=== PATIENT | female | born 1935 | race Caucasian/White ===

== ENCOUNTER 2020-08-27 17:40 | Emergency (ER) | payer OTHER ==
[~2020-08-27] VITALS: Ht 170.2 cm; Wt 63.5 kg
--- NOTE | ~2020-08-27 | EMS ---
[address] [address] EMS Patient Care Report Name: ADRIANA LOPEZ I Room #: REG MADHU Maldonado#: [id number] Admission: 08/27/20 Attend Phys: Discharge: Date of : 34 Report #: [id number] THIS REPORT FOR: //name// Report Transmitted: 08/27/2020 19:24 EMS Care Summary [facility] MED-ACT Incident [id number] @ 08/27/2020 16:57 Incident Location [address] [place] [address] Patient ADRIANA LOPEZ Female, 85 Years 1935 Patient Address [address] [place] [address] Patient History Dementia, Patient Allergies No known allergies, Patient Medications Acetaminophen, Levothyroxine, Ascorbic Acid, Meclizine, Lexapro, Lorazepam, Aricept, Depakote, Lisinopril, Chief Complaint "she fell and went unresponsive" Disposition Transported No Lights/[place] Dispatch Reason Unconscious/Fainting Transported To [facility] Narrative [id number] dispatched to the above location for C1 Falls. Upon arrival to the scene, [address] [address] EMS Patient Care Report Name: ADRIANA LOPEZ I Room #: FABRICIO Maldonado#: [id number] Admission: 08/27/20 Attend Phys: Discharge: Date of : 34 Report #: [id number] pt can be found laying in right recumbent position. Pt appears to be alert but is not tracking EMS crew upon arrival. The pt appears to be in pain but in no sort of imminent distress. Pt's skin is pink, warm, and dry. No audible breath sounds, JVD, accessory muscle use noted. No fever, cough, or shortness of breath noted. Small laceration noted to the pt's head, on the right side. Bleeding is controlled. No deformities, contusions, crepitus or swelling noted anywhere else. Upon arrival to the scene, pt's nurse stated that she "found the patient on the ground" after she heard the pt scream. Pt's nurse stated that no one witnessed the fall but that the pt "was alert" for about "2 minutes after the fall" but then the pt "went unresponsive" for about "5-7 minutes". The pt stated that her head hurts and that her right knee was painful. The pt stated that she does not remember falling and repeatedly asks "what happened?". The pt stated that she is not in any other pain and denies shortness of breath, chest pain, and dizziness. Upon arrival to the scene, pt contact is made. Primary and secondary assessment was performed. Vital signs were acquired. Pt was lifted to the cot with help from the fire crew. Pt was loaded into the ambulance. Transport was started to [facility]. Biocom was given with no questions or orders. Upon arrival to the hospital, pt was moved to the bed in ED Room 1. Report was given and care was transferred to ED RN. Initial Vitals @17:08P: 64,R: 16,Pain: 8/10,GCS: 14,SpO2: 95, @17:19P: 59,R: 16,BP: 146/76,Pain: 8/10,GCS: 14,SpO2: 95,Revised Trauma: 12, @17:07P: 65,R: 16,BP: 135/70,Pain: 8/10,GCS: 14,SpO2: 95,Revised Trauma: 12, Assessments @17:30MENTAL:Confused,SKIN:HEENT:Head/Face: Other,Eyes: Right Pupil: 4-mm,Eyes: Left Pupil: 4-mm,Neck/Airway: No Abnormalities,LUNG SOUNDS:General: No Abnormalities,ABDOMEN:General: No Abnormalities,PELVIS//GI:No Abnormalities,EXTREMITIES:Right Leg: Other,Left Arm: No Abnormalities,Right Arm: No Abnormalities,Left Leg: No Abnormalities,PULSE:NEURO:No Abnormalities, Impression COVID-19 - Confirmed by testing Timeline 16:55,Call Received 16:55,Psap Call 16:57,Dispatched 16:57,En Route 17:02,On Scene [address] [address] EMS Patient Care Report Name: ADRIANA LOPEZ I Room #: REG MADHU Maldonado#: [id number] Admission: 08/27/20 Attend Phys: Discharge: Date of : 34 Report #: [id number] 17:06,At Patient 17:07,BP: 135/70 M,PULSE: 65,RR: 16 R,SPO2: 95 Ox,ETCO2: ,BG: ,PAIN: 8,GCS: 14, 17:08,BP: / M,PULSE: 64,RR: 16 R,SPO2: 95 Ox,ETCO2: ,BG: ,PAIN: 8,GCS: 14, 17:19,BP: 146/76 M,PULSE: 59,RR: 16 R,SPO2: 95 Ox,ETCO2: ,BG: ,PAIN: 8,GCS: 14, 17:25,Depart Scene 17:35,At Destination 17:55,Call Closed Disclaimer v1.1 Copyright 2020 [employer] This EMS Care Summary contains data elements from the applicable legal record (which may be displayed differently). It is designed to provide pertinent information for the following purposes: continuity of care, clinical quality, and state data reporting. The complete legal record is available to ED staff and administrators of the receiving hospital in [facility]'s Patient Tracker. All data is provided "as is."
[2020-08-27 18:22] LABS: HEMATOCRIT 33.4 % (37.0-47.0); HEMOGLOBIN 10.7 gm/dL (12.0-15.0); MCH 26.3 pg (26.0-34.0); MCHC 31.9 g/dL (28.0-37.0); MCV 82.4 fL (80.0-100.0); PLATELET COUNT 222 thou/uL (150-400); RBC 4.06 mil/uL (4.20-5.00); RDW 15.9 % (10.5-14.5); WBC 5.5 thou/uL (4.0-11.0)
[2020-08-27 18:40] LABS: ALBUMIN 3.3 g/dL (3.4-5.0); ANION GAP 5 mmol/L (7-16); BUN 22 mg/dL (7-18); CHLORIDE 104 mmol/L (98-107); CO2 32 mmol/L (21-32); CREATININE 1.2 mg/dL (0.6-1.0); GLUCOSE 95 mg/dL (74-106); SGOT 14 U/L (15-37); SGPT 8 U/L (30-65); SODIUM 141 mmol/L (136-145); TOTAL BILIRUBIN 0.2 mg/dL (0.2-1.0); TOTAL PROTEIN 6.6 g/dL (6.4-8.2); TROPONIN-I <0.06 ng/mL (<0.06)
[2020-08-27] MEDS ORDERED: ARICEPT10 M1 PO (19:02)
[2020-08-27] MEDS ORDERED: TYLENOL325 M1 PO (19:02)
[2020-08-27] MEDS ORDERED: VITAMIN C500 M2 PO (19:03)
[2020-08-27] MEDS ORDERED: VITAMIN D325 G1 PO (19:04)
[2020-08-27] MEDS ORDERED: DEPAKOTE SPRIN125 MG PO (19:04)
[2020-08-27] MEDS ORDERED: LEVO-T75 MCG PO (19:05)
[2020-08-27] MEDS ORDERED: VITAMIN D21250 MC1 PO (19:05)
[2020-08-27] MEDS ORDERED: LEXAPRO20 MG PO (19:06)
[2020-08-27] MEDS ORDERED: LISINOPRIL10 MG PO (19:07)
[2020-08-27] MEDS ORDERED: LORAZEPAM 1 MG T1 MG PO (19:08)
[2020-08-27] MEDS ORDERED: MECLIZINE HCL25 M1 PO (19:09)
[2020-08-27] MEDS ORDERED: TUBERSOL1 ML/1 VIA INTRADERM (19:11)
[2020-08-27] MEDS ORDERED: ZINC SULFATE220 MG PO (19:12)
[2020-08-27 19:29] LABS: URINE BILIRUBIN NEGATIVE (Negative); URINE BLOOD NEGATIVE (Negative); URINE CLARITY CLOUDY; URINE GLUCOSE-RANDOM* NEGATIVE (Negative); URINE KETONES TRACE (Negative); URINE PROTEIN (DIPSTICK) TRACE (Negative)
[2020-08-27 19:31] LABS: URINE LEUKOCYTES-REFLEX 3+ (Negative); URINE NITRITE-REFLEX POSITIVE (Negative)
[2020-08-27 19:33] LABS: URINE COLOR YELLOW
[2020-08-27 20:54] LABS: CASTS None Seen /LPF (None Seen); CRYSTALS None Seen /LPF (None Seen); MUCUS 0-3 Light strn/LPF (None Seen); SQUAMOUS None Seen /LPF (0-3); URINE RBC 0-2 Rare /HPF (0-2)
[2020-08-27] MEDS ORDERED: KEFLEX500 M1 PO (21:07)
[2020-08-27 21:52] VITALS: BP 136/91
[2020-08-27 22:48] LABS: ABSOLUTE NEUTROPHILS 3.5 thou/uL (1.4-8.2)
--- NOTE | 2020-08-29 07:11 | EKG ---
[facility] [place] [address] ELECTROCARDIOGRAM REPORT Name: ADRIANA LOPEZ I [id number] Admission: 08/27/20 Attend Phys: Discharge: 08/28/20 Date of : 34 Report #: [id number] THIS REPORT FOR: cc: KAVYA VILLALTA Physician not on staff Shakeel Rahman MD [facility] ~ THIS REPORT FOR: //name// [facility] ED Test Date: 2020-08-27 Test Time: 17:53:28 Pat Name: ADRIANA LOPEZ Department: Room: Gender: F [place]: [facility] : 1935 Requested By: Macario Bunch Order Number: [id number] MD: Shakeel Rahman Measurements Intervals [place] Rate: 60 P: -1 NC: 187 QRS: -18 QRSD: 141 T: 123 QT: 507 QTc: 507 Interpretive Statements Sinus rhythm Left bundle branch block No previous ECG available for comparison Electronically Signed On 08-29-2020 7:11:24 TRIGONOMETRY TEACH[employer] by Shakeel Rahman [email or web address] <ELECTRONICALLY SIGNED> By: Shakeel Rahman MD, FAC 08/29/20 0711 D: [id number] Shakeel Rahman MD, FACC /EPI
== END 2020-08-28 00:56 | disposition home or self-care (01) ==
LOC: ER 17:40
PROVIDERS: Emergency Medicine
DX: M25.561 Pain in right knee (principal); N39.0 Urinary tract infection, site not specified; I10 Essential (primary) hypertension; Z79.899 Other long term (current) drug therapy; W18.39XA Other fall on same level, initial encounter; Y93.89 Activity, other specified; Y92.89 Other specified places as the place of occurrence of the external cause; Y99.8 Other external cause status

== ENCOUNTER 2020-12-13 03:45 | Emergency (ER) | payer OTHER ==
[~2020-12-13] VITALS: Ht 152.4 cm; Wt 68.0 kg
--- NOTE | ~2020-12-13 | EMS ---
[address] [address] EMS Patient Care Report Name: ADRIANA LOPEZ I Room #: REG MADHU Maldonado#: [id number] Admission: 12/13/20 Attend Phys: Discharge: Date of : 34 Report #: [id number] THIS REPORT FOR: //name// Report Transmitted: 12/13/2020 04:03 EMS Care Summary [facility] MED-ACT Incident [id number] @ 12/13/2020 03:13 Incident [facility] [place] [address] Patient ADRIANA LOPEZ Female, 85 Years 1935 Patient Address [address] [place] [address] Patient History Dementia,Hypertension (HTN), Patient Allergies No known allergies, Patient Medications Ascorbic Acid, Meclizine, Lisinopril, Lexapro, Depakote, Acetaminophen, Lorazepam, Levothyroxine, Aricept, Chief Complaint Patient fell and hit her head. Disposition Transported No Lights/[place] Dispatch Reason Falls Transported To [facility] Narrative Arrived to find an 85 yr old female patient sitting up on the floor of her [address] [address] EMS Patient Care Report Name: ADRIANA LOPEZ I Room #: FABRICIO Maldonado#: [id number] Admission: 12/13/20 Attend Phys: Discharge: Date of : 34 Report #: [id number] bedroom in no obvious acute distress holding a washcloth to her chin. This morning the patient suffered an unwitnessed fall in her room. Patient does not remember everything about the fall but she remembers "bouncing twice." Patient states the left side of her head hurts. Patient also has about a 1/2 inch to a inch long laceration to her chin under the left side of her lip. The patient is unsure if she lost consciousness and indicates her right upper arm is a little sore. Patient denies any neck pain, numbness or tingling in her extremities, or pain on ROM of her neck. Patient states she is "embarrassed" multiple times. A: See assessment tab. Physical exam. Patient was assisted to a standing position she took a couple of steps and then proceeded to sit on the cot. Vital signs. Moved to unit. En route to [facility]. Vital signs and ECG were monitored during transport. Patient rested on the cot during transport and developed no new complaints. We contacted [facility] on the [employer] radio. Patient was alert with stable vitals signs upon arrival at [facility]. Patient care was transferred to an ED RN in room 1 and the cot sheet was utilized to transfer patient care. Patient's paperwork stated that [facility] was her hospital of choice. Initial Vitals @03:39P: 60,R: 16,BP: 196/94,Pain: 2/10,GCS: 14,SpO2: 98,Revised Trauma: 12,TN Suspected: false @03:33P: 60,R: 16,BP: 216/99,Pain: 2/10,GCS: 14,Temp: 98F,SpO2: 95,Revised Trauma: 12,TN Suspected: false @03:29P: 63,R: 16,BP: 202/101,Pain: 2/10,GCS: 15,SpO2: 98,Revised Trauma: 12, Assessments @03:25MENTAL:Confused,Person Oriented,Place Oriented,Event Oriented,SKIN:HEENT:Head/Face: Other,LUNG SOUNDS:ABDOMEN:PELVIS//GI:EXTREMITIES:Right Arm: Other,Left Arm: No Abnormalities,Left Leg: No Abnormalities,Right Leg: No Abnormalities,PULSE:Radial: 2+ Normal,NEURO: Impression Injury of Head Procedures @03:33Surgical Mask on PatientResponse: Unchanged Timeline 03:11,Call Received [facility] [address] [place] [address] EMS Patient Care Report Name: ADRIANA LOPEZ I Room #: FABRICIO Maldonado#: [id number] Admission: 12/13/20 Attend Phys: Discharge: Date of : 34 Report #: [id number] 03:11,Psap Call 03:13,Dispatched 03:15,En Route 03:21,On Scene 03:23,At Patient 03:29,BP: 202/101 M,PULSE: 63,RR: 16 R,SPO2: 98 Ox,ETCO2: ,BG: ,PAIN: 2,GCS: 15, 03:33,Surgical Mask on Patient,Response: Unchanged 03:33,Depart Scene 03:33,BP: 216/99 M,PULSE: 60,RR: 16 R,SPO2: 95 Ox,ETCO2: ,BG: ,PAIN: 2,GCS: 14, 03:39,BP: 196/94 M,PULSE: 60,RR: 16 R,SPO2: 98 Ox,ETCO2: ,BG: ,PAIN: 2,GCS: 14, 03:40,At Destination 04:03,Call Closed Disclaimer v1.1 Copyright 2020 [employer] This EMS Care Summary contains data elements from the applicable legal record (which may be displayed differently). It is designed to provide pertinent information for the following purposes: continuity of care, clinical quality, and state data reporting. The complete legal record is available to ED staff and administrators of the receiving hospital in [facility]'s Patient Tracker. All data is provided "as is."
[~2020-12-13 03:45] MED LIST: ARICEPT10 M1 PO; DEPAKOTE SPRIN125 MG PO; KEFLEX500 M1 PO; LEVO-T75 MCG PO; LEXAPRO20 MG PO; LISINOPRIL10 MG PO; LORAZEPAM 1 MG T1 MG PO; MECLIZINE HCL25 M1 PO; TUBERSOL1 ML/1 VIA INTRADERM; TYLENOL325 M1 PO; VITAMIN C500 M2 PO; VITAMIN D21250 MC1 PO; VITAMIN D325 G1 PO; ZINC SULFATE220 MG PO
[2020-12-13 03:48] VITALS: BP 176/92
[2020-12-13] MEDS ORDERED: TRAMADOL 50 MG50 MG PO (03:57)
== END 2020-12-13 05:36 ==
LOC: ER 03:45
DX: S01.81XA Laceration without foreign body of other part of head, initial encounter (principal); S01.512A Laceration without foreign body of oral cavity, initial encounter; I10 Essential (primary) hypertension; E03.9 Hypothyroidism, unspecified; Z79.899 Other long term (current) drug therapy; W19.XXXA Unspecified fall, initial encounter; Y93.89 Activity, other specified; Y92.89 Other specified places as the place of occurrence of the external cause; Y99.8 Other external cause status

== ENCOUNTER 2021-01-30 04:49 | Emergency (ER) | payer OTHER ==
[~2021-01-30] VITALS: Ht 162.6 cm; Wt 56.7 kg
--- NOTE | ~2021-01-30 | EMS ---
[address] [address] EMS Patient Care Report Name: ADRIANA LOPEZ I Room #: REG MADHU Maldonado#: [id number] Admission: 01/30/21 Attend Phys: Discharge: Date of : 34 Report #: [id number] THIS REPORT FOR: //name// Report Transmitted: 01/30/2021 06:21 EMS Care Summary [facility] MED-ACT Incident [id number] @ 01/30/2021 04:21 Incident Location [facility] [place] [address] Patient ADRIANA LOPEZ Female, 85 Years 1935 Patient Address [facility] [address] [address] Patient History Dementia,Hypertension (HTN), Patient Allergies No known allergies, Patient Medications Lisinopril, Lexapro, Aricept, Depakote, Meclizine, Levothyroxine, Lorazepam, Acetaminophen, Ascorbic Acid, Chief Complaint She fell and hit her head Disposition Transported No Lights/[place] Dispatch Reason Falls Transported To [facility] Narrative [id number] dispatched to a nursing facility for a C2 fall. Pt was found seated in a [address] [address] EMS Patient Care Report Name: ADRIANA LOPEZ I Room #: REG MADHU Maldonado#: [id number] Admission: 01/30/21 Attend Phys: Discharge: Date of : 34 Report #: [id number] wheel chair with staff present. Pt stated that she got up this morning to use the restroom and lost her footing in the bathroom, falling to the floor. Pt stated that she hit the back of her head on the floor. Pt didn't think she lost consciousness but was somewhat unsure. Staff stated that the pt was acting like her normal self and denied any mental status changes. The pt appeared to be more upset about the situation than anything. Pt does not currently take any blood thinners. Pt stated that her head hurt and she felt slightly nauseous. She stated "I feel like im going to be sick over this whole thing" and "Im so embarrassed". Pt had a small 2-3 cm laceration to the back of her head that was not actively bleeding. Pt denied any other injuries and no other obvious injuries were noted. Pt was transported to [facility] per closest facility protocol. Initial Vitals @04:43P: 62,SpO2: 99, @04:44P: 62,R: 16,BP: 191/90,GCS: 15,SpO2: 97,Revised Trauma: 12, @04:32P: 71,R: 16,BP: 156/94,Pain: 4/10,GCS: 15,Temp: 97F,SpO2: 96,Revised Trauma: 12, Assessments @04:44MENTAL:Person Oriented,Place Oriented,SKIN:HEENT:Head/Face: Other,Neck/Airway: No Abnormalities,LUNG SOUNDS:General: No Abnormalities,ABDOMEN:General: No Abnormalities,PELVIS//GI:No Abnormalities,EXTREMITIES:Left Arm: No Abnormalities,Right Arm: No Abnormalities,Left Leg: No Abnormalities,Right Leg: No Abnormalities,PULSE:NEURO:No Abnormalities, Impression Laceration/Abrasion/Hematoma (minor surface trauma) Procedures @04:44Surgical Mask on PatientResponse: Unchanged Timeline 04:19,Call Received 04:19,Psap Call 04:21,Dispatched 04:22,En Route 04:28,On Scene 04:30,At Patient 04:32,BP: 156/94 M,PULSE: 71,RR: 16 R,SPO2: 96 Ox,ETCO2: ,BG: ,PAIN: 4,GCS: 15, 04:40,Depart Scene 04:43,BP: / M,PULSE: 62,RR: R,SPO2: 99 Ox,ETCO2: ,BG: ,PAIN: ,GCS: , 04:44,Surgical Mask on Patient,Response: Unchanged 04:44,BP: 191/90 M,PULSE: 62,RR: 16 R,SPO2: 97 Ox,ETCO2: ,BG: ,PAIN: ,GCS: 15, [address] [address] EMS Patient Care Report Name: ADRIANA LOPEZ I Room #: REG MADHU M.R.#: [id number] Admission: 01/30/21 Attend Phys: Discharge: Date of : 34 Report #: [id number] 04:46,At Destination 05:02,Call Closed Disclaimer v1.1 Copyright 2020 [employer] This EMS Care Summary contains data elements from the applicable legal record (which may be displayed differently). It is designed to provide pertinent information for the following purposes: continuity of care, clinical quality, and state data reporting. The complete legal record is available to ED staff and administrators of the receiving hospital in [facility]'s Patient Tracker. All data is provided "as is."
[~2021-01-30 04:49] MED LIST changes: +TRAMADOL 50 MG50 MG PO
[2021-01-30] MEDS ORDERED: ACIDOPHILUS1 EAC2 PO (05:05)
[2021-01-30] MEDS ORDERED: TYLENOL325 M1 PO (05:06)
[2021-01-30] MEDS ORDERED: ARICEPT10 MG PO (05:07)
[2021-01-30] MEDS ORDERED: DEPAKOTE SPRIN125 MG PO (05:07)
[2021-01-30] MEDS ORDERED: VITAMIN D21250 MC1 PO (05:08)
[2021-01-30] MEDS ORDERED: IMODIUM A-D2 M1 PO (05:12)
[2021-01-30] MEDS ORDERED: LEVO-T75 MCG PO (05:14)
[2021-01-30] MEDS ORDERED: LEXAPRO20 MG PO (05:15)
[2021-01-30 08:07] VITALS: BP 176/89
== END 2021-01-30 08:05 | disposition short-term general hospital (02) ==
LOC: ER 04:49
DX: S01.01XA Laceration without foreign body of scalp, initial encounter (principal); F03.90 Unspecified dementia, unspecified severity, without behavioral disturbance, psychotic disturbance, mood disturbance, and anxiety; I10 Essential (primary) hypertension; F41.9 Anxiety disorder, unspecified; E03.9 Hypothyroidism, unspecified; Z79.899 Other long term (current) drug therapy; W01.198A Fall on same level from slipping, tripping and stumbling with subsequent striking against other object, initial encounter; Y93.89 Activity, other specified; Y92.091 Bathroom in other non-institutional residence as the place of occurrence of the external cause; Y99.9 Unspecified external cause status